=== PATIENT | male | born 1995 | race Caucasian/White ===

== ENCOUNTER 2019-08-20 16:48 | Emergency (ER) | payer SELFPAY ==
[~2019-08-20] VITALS: Ht 182.9 cm; Wt 74.8 kg
--- NOTE | 2019-08-20 20:00 | NUR ---
PT AAOX4. AMBULATORY WITH STEADY GAIT. PT C/O ANAL ABSCESS X 1 WEEK. PT STATES HE HAS HX OF ANAL ABSCESS AND USUALY GOES TO ED TO HAVE THEM DRAINED. NO ACUTE DISTRESS NOTED. AWAITING MD FOR EVAL.
--- NOTE | 2019-08-20 20:04 | NUR ---
AT BEDSIDE FOR EVLA.
--- NOTE | 2019-08-20 20:20 | NUR ---
URINE AND LAB COLLECTED BY WEIGHT GUESSER
[2019-08-20 20:28] LABS: BASOPHILS % (AUTO) 0.3 % (0.0-2.0); EOSINOPHILS % (AUTO) 0.2 % (0.0-6.0); HEMATOCRIT 42 % (39-51); HEMOGLOBIN 13.8 g/dL (13.5-17.5); LYMPHOCYTES # (AUTO) 1.4 /CMM (0.8-4.8); LYMPHOCYTES % (AUTO) 11.2 % (20.0-44.0); MEAN CORPUSCULAR HGB CONC 33 g/dl (31.0-36.0); MEAN CORPUSCULAR VOLUME 87 fL (80-96); MONOCYTES # (AUTO) 0.6 /CMM (0.1-1.30); NEUTROPHILS # (AUTO) 10.5 /CMM (1.8-8.9); NEUTROPHILS % (AUTO) 83.3 % (43.0-81.0); PLATELET COUNT (AUTO) 293 /CMM (150-450); RED BLOOD CELL COUNT(AUTO) 4.81 MIL/uL (4.5-6.0); WHITE BLOOD COUNT (AUTO) 12.6 K/uL (4.3-11.0)
[2019-08-20 20:29] LABS: APPEARANCE,URINE CLEAR (CLEAR); BILIRUBIN,URINE NEGATIVE (NEGATIVE); BLOOD, URINE NEGATIVE Ery/uL (NEGATIVE); COLOR,URINE YELLOW (YELLOW); KETONES,URINE 40 (NEGATIVE); LEUKOCYTE ESTERASE ,URINE NEGATIVE (NEGATIVE); NITRITE, URINE NEGATIVE (NEGATIVE); PH,URINE 8.5 (5.0-8.0); PROTEIN,URINE NEGATIVE (NEGATIVE); UGLUCOSE NEGATIVE (NEGATIVE); UROBILINOGEN,URINE 0.2 EU/dL (0.2)
[2019-08-20 20:38] LABS: CALCIUM, SERUM 9.6 mg/dL (8.5-10.1); CREATININE 0.9 mg/dL (0.6-1.3); POTASSIUM 3.5 mmol/L (3.5-5.1)
[2019-08-20 20:44] LABS: ALBUMIN 4.8 g/dL (3.4-5.0); BILIRUBIN,DIRECT 0.1 mg/dL (0.0-0.2); BILIRUBIN,TOTAL 0.6 mg/dL (0.2-1.0); TOTAL PROTEIN, SERUM 8.5 g/dL (6.4-8.2)
[2019-08-20] MEDS ORDERED: CT SWABBABLE VALVE TRANS SET 1 EA INFUS.SET MC ONE (20:49)
[2019-08-20] MEDS ORDERED: IOHEXOL-300 100 ML VIAL IV ONE (20:49)
[2019-08-20] MEDS ORDERED: IV NS 0.9% 250 ML IV ONE (20:49)
--- NOTE | 2019-08-20 20:56 | NUR ---
BROUGHT TO CT
--- NOTE | 2019-08-20 21:06 | NUR ---
IN BED, COMFORTABLY. VSS.
[2019-08-20] MEDS ORDERED: SULFAMETH/TRIMETH 800/160 MG 1 UDTAB TABLET PO ONE (22:00)
[2019-08-20] MEDS ORDERED: CEFTRIAXONE 1GM BAG (ER ONLY) 1 GM/50 ML PIGGYBACK IV ONE (22:00)
[2019-08-20] MEDS ORDERED: SULFAMETH/TRIMETH 800/160 MG 1 UDTAB TABLET ONE (22:00)
[2019-08-20] MEDS ORDERED: CEFTRIAXONE 1GM BAG (ER ONLY) 50 ML IV ONE (22:00)
--- NOTE | 2019-08-20 22:34 | NUR ---
IV removed. Catheter intact and site benign. Pressure and 4x4 applied to site. No bleeding noted. Patient discharged to home in stable condition. Written and verbal after care instructions given. Patient verbalizes understanding of instruction and RX. VSS. PT ambulated with steady gait.
[2019-08-20 22:36] VITALS: BP 136/84
== END 2019-08-20 22:37 | disposition home or self-care (01) ==
LOC: ER 16:51
DX: L03.315 Cellulitis of perineum (principal); Z98.890 Other specified postprocedural states; Z88.0 Allergy status to penicillin; Z60.2 Problems related to living alone
CPT/HCPCS: 36415; 74177; 80048; 80076; 81001; 83690; 85025; 96365; 99284; J0696; J7050; Q9967; 81000-TC

== ENCOUNTER 2019-09-08 16:03 | Emergency (ER) | payer SELFPAY ==
[~2019-09-08] VITALS: Ht 180.3 cm; Wt 59.0 kg
[2019-09-08 16:09] VITALS: BP 134/89
--- NOTE | 2019-09-08 16:32 | NUR ---
Patient discharged to home in stable condition. Written and verbal after care instructions given. Patient verbalizes understanding of instruction.
== END 2019-09-08 16:32 | disposition home or self-care (01) ==
LOC: ER 16:03
DX: L03.317 Cellulitis of buttock (principal); Z98.890 Other specified postprocedural states; Z88.0 Allergy status to penicillin; Z60.2 Problems related to living alone

== ENCOUNTER 2019-09-10 15:32 | Emergency (ER) | payer SELFPAY ==
[~2019-09-10] VITALS: Ht 170.2 cm; Wt 70.8 kg
--- NOTE | 2019-09-10 15:48 | NUR ---
PT AAOX4. LUCIA. PT IN ED FOR RECHECK OF CELLULITIS ON PILONIDAL AREA. PER PATIENT HE WAS HERE 2 DAYS AGO BUT WAS TOLD TO COME BACK FOR WOUND CHECK. VSS. NO ACUTE DISTRESS NOTED. AWAITING MD FOR EVAL.
[2019-09-10 16:12] VITALS: BP 125/82
--- NOTE | 2019-09-10 16:12 | NUR ---
Patient discharged to home in stable condition. Written and verbal after care instructions given. Patient verbalizes understanding of instruction and RX. pt given copy of july. VSS. Ambulated with steady gait.
== END 2019-09-10 16:13 | disposition home or self-care (01) ==
LOC: ER 15:34
DX: K60.3 Anal fistula (principal); Z98.890 Other specified postprocedural states; Z60.2 Problems related to living alone; Z88.0 Allergy status to penicillin

== ENCOUNTER 2020-03-04 15:21 | Emergency (ER) | payer SELFPAY ==
[~2020-03-04] VITALS: Ht 182.9 cm; Wt 77.1 kg
--- NOTE | 2020-03-04 15:42 | NUR ---
pt self presents to er ambulatory to er bed 02. c/o noticing blood everytime he wipes his behind for the past 5 days. pt states has history of perirectal abscess. denies any weakness. stable vitals. awaiting md purdy.
--- NOTE | 2020-03-04 16:04 | NUR ---
dr leung at bedside for eval. nguyễn moya, to pile operator.
--- NOTE | 2020-03-04 17:01 | NUR ---
Patient discharged to home in stable condition. Written and verbal after care instructions given. Patient verbalizes understanding of instruction.
[2020-03-04 17:02] VITALS: BP 140/74
== END 2020-03-04 17:02 | disposition home or self-care (01) ==
LOC: ER 15:23
DX: K62.5 Hemorrhage of anus and rectum (principal); K61.0 Anal abscess; Z98.890 Other specified postprocedural states; Z88.0 Allergy status to penicillin; Z60.2 Problems related to living alone